=== PATIENT | male | born 1990 | race American Indian/Alaskan Native ===

== ENCOUNTER 2017-05-18 21:08 | Emergency (ER) | payer OTHER ==
[2017-05-18 21:08] VITALS: BMI 30.7
[2017-05-18 21:46] VITALS: TEMP 98
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
[2017-05-19 00:14] VITALS: BP 125/86; PULSE 73; RESP 20; O2SAT 98
== END 2017-05-19 00:15 | disposition home or self-care (01) ==
LOC: ED 21:08
DX: M54.2 Cervicalgia (principal); M54.9 Dorsalgia, unspecified
CPT/HCPCS: 72125; 96372; 99285; J1885